=== PATIENT | male | born 1975 | race Caucasian/White ===

== ENCOUNTER → 2020-08-28 10:34 | Outpatient (CLI) | payer OTHER, SELFPAY ==
--- NOTE | ~2020-08-28 | MR_ITS ---
EXAMINATION: MR elbow RT wo con DATE: 08/28/2020 11:34 INDICATION: Right elbow pain. TECHNIQUE: Magnetic resonance imaging (MRI) of the right elbow was performed without intravenous cont rast. Sequences included coronal, axial, and sagittal PD-weighted FS FSE and coronal, axial, and sagi ttal PD-weighted FSE. COMPARISON: None FINDINGS: Osseous/other: Bone alignment is normal. No fracture. There is partial-thickness cartilage loss of the ulnohumeral j oint and radiocapitellar joint. Tendons: The common extensor tendon and common flexor tendon are normal. There is a partial tear of biceps ten don at its radial attachment involving the majority of the tendon. There is mild bicipitoradial bursi tis. Ligaments: Radial collateral ligament, lateral ulnar collateral ligament, and ulnar collateral ligament are inta ct. Cubital tunnel: The ulnar nerve is normal. Fluid: There is no elbow joint effusion. IMPRESSION: 1. Partial tear of biceps tendon at its radial attachment. 2. Mild elbow joint chondrosis. Reviewed, dictated and finalized at location A. [employer]
== END ==
PROVIDERS: Visit Provider Orthopaedic Surgery
DX: M25.521 Pain in right elbow (principal)
CPT/HCPCS: 73221